=== PATIENT | male | born 1960 | race Hispanic/Latino ===

== ENCOUNTER 2023-04-21 15:47 | Emergency (ER) | payer BC ==
[~2023-04-21] VITALS: Ht 167.6 cm; Wt 99.8 kg
[2023-04-21] MEDS ORDERED: LISI-663 PO (17:20)
[2023-04-21] MEDS ORDERED: HYDR25TA PO (17:20)
[2023-04-21] MEDS ORDERED: CEPH500B PO (17:20)
[2023-04-21] MEDS ORDERED: ACET-2123 PO (17:20)
[2023-04-21] MEDS ORDERED: PROMETHAZINE HCL 25 MG/ML 1ML AMPULE IM ONE (17:30)
[2023-04-21] MEDS ORDERED: KETOROLAC 60 MG VIAL (30MG/ML) IM ONE (17:30)
[2023-04-21 18:42] VITALS: BP 132/74; PULSE 72; RESP 18; O2SAT 98
== END 2023-04-21 18:28 | disposition home or self-care (01) ==
LOC: EDH 15:47
DX: I10 Essential (primary) hypertension (principal); K08.89 Other specified disorders of teeth and supporting structures; Z79.899 Other long term (current) drug therapy; Z91.199 Patient's noncompliance with other medical treatment and regimen due to unspecified reason
CPT/HCPCS: 99284; 96372 ×2; J2550; J1885